=== PATIENT | female | born 1955 | race Two or more races ===

== ENCOUNTER 2017-06-03 23:35 | Emergency (ER) | payer BC ==
[~2017-06-03] VITALS: Ht 157.5 cm; Wt 74.1 kg
[2017-06-03 23:41] VITALS: BP 147/67; PULSE 85; RESP 20; TEMP 98.1; O2SAT 98
[2017-06-04] MEDS ORDERED: SODIUM CHLOR 0.9% 1000 ML INJ 1,000 ML IV SCH (00:03)
[2017-06-04 00:15] VITALS: BP 147/67; PULSE 85; RESP 18; TEMP 98.1; O2SAT 98
[2017-06-04] MEDS ORDERED: KETOROLAC TROMETHAMINE 30 MG/ML (IVP) VIAL IVP ONE (00:15)
[2017-06-04] MEDS ORDERED: SODIUM CHLORIDE 0.9% FLUSH 10 ML FLUSH IV FLUSH PRN (00:15)
[2017-06-04] MEDS ORDERED: MORPHINE SULFATE 4 MG/ML INJ IV PUSH ONE (00:15)
[2017-06-04] MEDS ORDERED: ONDANSETRON HCL 4 MG/2 ML VIAL IVP ONE (00:15)
[2017-06-04 00:42] LABS: AUTOMATED NEUTROPHIL # 10.6 TH/MM3 (1.8-7.7); BASOPHIL % 0.2 % (0.0-2.0); EOSINOPHIL # 0.1 TH/MM3 (0-0.4); HEMATOCRIT 38.5 % (35.0-46.0); HEMOGLOBIN 12.1 GM/DL (11.6-15.3); LYMPH % 10.5 % (9.0-44.0); LYMPHOCYTE # 1.3 TH/MM3 (1.0-4.8); MEAN CELL VOLUME 88.5 FL (80.0-100.0); MEAN CORPUSCULAR HEMOGLOBIN 27.8 PG (27.0-34.0); MEAN CORPUSCULAR HGB CONC 31.4 % (32.0-36.0); MEAN PLATELET VOLUME 9.5 FL (7.0-11.0); MONO % 3.9 % (0.0-8.0); MONOCYTE # 0.5 TH/MM3 (0-0.9); NEUT % 84.4 % (16.0-70.0); PLATELET COUNT 253 TH/MM3 (150-450); RED BLOOD COUNT 4.36 MIL/MM3 (4.00-5.30); WHITE BLOOD COUNT 12.5 TH/MM3 (4.0-11.0)
[2017-06-04] MEDS ORDERED: MORPHINE SULFATE 2 MG/ML INJ IV PUSH ONE (00:45)
[2017-06-04] MEDS ORDERED: IRBE75TA5 PO (00:48)
[2017-06-04 00:55] LABS: CALCIUM 9.7 MG/DL (8.5-10.1)
[2017-06-04 00:56] LABS: ALBUMIN 4.1 GM/DL (3.4-5.0); BICARBONATE 30.7 MEQ/L (21.0-32.0)
[2017-06-04 00:58] LABS: DIRECT BILIRUBIN ADULT 0.1 MG/DL (0.0-0.2)
[2017-06-04 00:59] LABS: CREATININE 1.2 MG/DL (0.50-1.00)
[2017-06-04 01:00] LABS: INDIRECT BILIRUBIN 0.3 MG/DL (0.0-0.8); TOTAL BILIRUBIN ADULT 0.4 MG/DL (0.2-1.0); TOTAL PROTEIN 8.7 GM/DL (6.4-8.2)
--- NOTE | 2017-06-04 01:19 | PD ---
HPI Chief Complaint: Abdominal Pain Time Seen by Provider: 23:51 Travel History International Travel<30 days: No Contact w/Intl Traveler<30days: No Traveled to known affect area: No History of Present Illness HPI Patient is a 62-year-old female who comes in complaining of abdominal pain. The pain started a few hours ago after eating fried pork. The pain is only in the center of her abdomen. She denies radiation of the pain. She has had this pain before, and says it usually comes on after eating fatty foods. She's had some nausea and vomiting. She says she is having normal bowel movements. She denies fever or chills. She has not taken anything for her pain. [facility] Past Medical History Patient Takes Glucophage: No GERD: Yes Hypertension: Yes Tetanus Vaccination: Unknown Influenza Vaccination: No ?: Not Past Surgical History Section: Yes Gynecologic Surgery: Yes (C SECTION) Social History Alcohol Use: No Tobacco Use: No Substance Use: No Allergies-Medications (Allergen,Severity, Reaction): Coded Allergies: No Allergy Information Available (Unverified , 06/04/17) Reported Meds & Prescriptions Reported Meds & Active Scripts Active Reported Irbesartan 75 Mg Tab 75 Mg PO DAILY Review of Systems Except as stated in HPI: all other systems reviewed are Neg General / Constitutional: No: Fever, Chills HENT: No: Headaches, Lightheadedness Cardiovascular: No: Chest Pain or Discomfort Respiratory: No: Shortness of Breath Gastrointestinal: Positive: Nausea, Vomiting, Abdominal Pain Genitourinary: No: Dysuria Musculoskeletal: No: Myalgias Skin: No Rash, No Itching, No Change in Pigmentation Neurologic: No: Weakness, Dizziness Physical Exam Narrative GENERAL: Awake and alert, in no acute distress. SKIN: Focused skin assessment warm/dry. HEAD: Atraumatic. Normocephalic. EYES: Pupils equal and round. No scleral icterus. ENT: Mucous membranes pink and moist. NECK: Trachea midline. No JVD. CARDIOVASCULAR: Regular rate and rhythm. No murmur appreciated. RESPIRATORY: No accessory muscle use. Clear to auscultation. Breath sounds equal bilaterally. GASTROINTESTINAL: Abdomen soft, nondistended. Tender to palpation of the mid epigastric area. No rebound or guarding. MUSCULOSKELETAL: No obvious deformities. No clubbing. No cyanosis. No edema. NEUROLOGICAL: Awake and alert. No obvious cranial nerve deficits. Motor grossly within normal limits. Normal speech. PSYCHIATRIC: Appropriate mood and affect; insight and judgment normal. Data Data Last Documented VS Vital Signs Date Time Temp Pulse Resp B/P (MAP) Pulse Ox O2 Delivery O2 Flow Rate FiO2 06/04/17 01:43 98.5 92 15 140/69 (92) 97 Orders Orders Basic Metabolic Panel (Bmp) (06/04/17 00:03) Complete Blood Count With Diff (06/04/17 00:03) Lipase (06/04/17 00:03) Prothrombin Time / Inr (Pt) (06/04/17 00:03) Act Partial Throm Time (Ptt) (06/04/17 00:03) Iv Access Insert/Monitor (06/04/17 00:03) Ecg Monitoring (06/04/17 00:03) Oximetry (06/04/17 00:03) Morphine Inj (Morphine Inj) (06/04/17 00:15) Ondansetron Inj (Zofran Inj) (06/04/17 00:15) Sodium Chlor 0.9% 1000 Ml Inj (Ns 1000 M (06/04/17 00:03) Sodium Chloride 0.9% Flush (Ns Flush) (06/04/17 00:15) Ketorolac Inj (Toradol Inj) (06/04/17 00:15) Hepatic Functional Panel (06/04/17 00:03) Morphine Inj (Morphine Inj) (06/04/17 00:45) Ed Discharge Order (06/04/17 01:19) Labs Laboratory Tests Test 06/04/17 00:30 White Blood Count 12.5 TH/MM3 Red Blood Count 4.36 MIL/MM3 Hemoglobin 12.1 GM/DL Hematocrit 38.5 % Mean Corpuscular Volume 88.5 FL Mean Corpuscular Hemoglobin 27.8 PG Mean Corpuscular Hemoglobin Concent 31.4 % Red Cell Distribution Width 14.0 % Platelet Count 253 TH/MM3 Mean Platelet Volume 9.5 FL Neutrophils (%) (Auto) 84.4 % Lymphocytes (%) (Auto) 10.5 % Monocytes (%) (Auto) 3.9 % Eosinophils (%) (Auto) 1.0 % Basophils (%) (Auto) 0.2 % Neutrophils # (Auto) 10.6 TH/MM3 Lymphocytes # (Auto) 1.3 TH/MM3 Monocytes # (Auto) 0.5 TH/MM3 Eosinophils # (Auto) 0.1 TH/MM3 Basophils # (Auto) 0.0 TH/MM3 CBC Comment DIFF FINAL Differential Comment Prothrombin Time 10.0 SEC Prothromb Time International Ratio 1.0 RATIO Activated Partial Thromboplast Time 22.9 SEC Blood Urea Nitrogen 24 MG/DL Creatinine 1.20 MG/DL Random Glucose 110 MG/DL Total Protein 8.7 GM/DL Albumin 4.1 GM/DL Calcium Level 9.7 MG/DL Alkaline Phosphatase 95 U/L Aspartate Amino Transf (AST/SGOT) 28 U/L Alanine Aminotransferase (ALT/SGPT) 26 U/L Total Bilirubin 0.4 MG/DL Direct Bilirubin 0.1 MG/DL Sodium Level 138 MEQ/L Potassium Level 4.0 MEQ/L Chloride Level 101 MEQ/L Carbon Dioxide Level 30.7 MEQ/L Anion Gap 6 MEQ/L Estimat Glomerular Filtration Rate 45 ML/MIN Indirect Bilirubin 0.3 MG/DL Lipase 179 U/L [facility] Medical Decision Making Medical Screen Exam Complete: Yes Emergency Medical Condition: Yes Differential Diagnosis Pancreatitis versus cholecystitis versus gastritis Narrative Course Patient is a 62-year-old female comes in complaining of midepigastric abdominal pain, that started after eating fried pork. Exam shows tenderness to the midepigastric area. IV established, labs sent. Labs show no acute abnormalities. Patient was given IV fluids, Toradol, morphine, Zofran. She reports resolution of her symptoms. Home. She is advised to avoid fatty foods in the future. Advised follow-up with a primary care doctor. Advised to return as needed for any worsening symptoms. Diagnosis Primary Impression: Abdominal pain Qualified Codes: R10.13 - Epigastric pain Patient Instructions: Abdominal Pain (ED), General Instructions Additional Instructions: Avoid fatty foods. Follow-up with a primary care doctor. Return to the ED as needed for any worsening symptoms. Disposition: 01 DISCHARGE HOME Condition: Stable Allegra Hu MD Jun 04, 2017 01:19
[2017-06-04 01:42] VITALS: RESP 15
[2017-06-04 01:43] VITALS: BP 140/69; TEMP 98.5
== END 2017-06-04 01:50 | disposition home or self-care (01) ==
LOC: PHED 23:35
DX: R10.13 Epigastric pain (principal); I10 Essential (primary) hypertension; K21.9 Gastro-esophageal reflux disease without esophagitis
CPT/HCPCS: 80048; 80076; 83690; 85025; 85610; 85730; 96361; 96374; 96375; 99284; J1885; J2270; J2405; J7030